=== PATIENT | male | born 1985 | race Asian ===

== ENCOUNTER 2024-04-09 18:27 | Emergency (ER) | payer BC ==
[2024-04-09 18:36] VITALS: RESP 18; TEMP 97.7; BMI 30.1
[2024-04-09] MEDS ORDERED: ACETAMINOPHEN INJECTION 100 ML IVPB ONE (19:41)
[2024-04-09] MEDS: ACETAMINOPHEN 1000 MG/100 ML BAG IVPB ONE (19:54)
[2024-04-09] MEDS: SODIUM CHLORIDE 0.9% 500 ML INFUS.BAG IV ONE (19:54)
[2024-04-09 20:29] LABS: BASO % 0.6 % (0-2.0); EOS % 3.8 % (0-4.5); HEMATOCRIT 41.1 % (35.4-49); HEMOGLOBIN 13.8 GM/dL (11.7-16.9); LYMPH % 38.1 % (8-40); MCH 26.5 pg (25.7-33.7); MCHC 33.5 g/dl (32.0-35.9); MEAN CELL VOLUME 79.2 fl (80-96); MEAN PLT VOLUME 7.7 fl (7.5-11.1); MONO % 8.2 % (3.8-10.2); NEUT % 49.3 % (42.8-82.8); PLATELET COUNT 352 10^3/uL (134-434); RBC 5.19 M/mm3 (4.00-5.60); RDW 12.5 % (11.9-15.9); WHITE BLOOD COUNT 6.8 K/mm3 (4.0-10.0)
[2024-04-09 20:43] LABS: POTASSIUM 4.3 mmol/L (3.5-5.1)
[2024-04-09 20:45] LABS: ALBUMIN 3.5 g/dl (3.4-5.0); BLOOD UREA NITROGEN 15.8 mg/dL (7-18); CALCIUM 10.1 mg/dL (8.5-10.1); MAGNESIUM 1.7 mg/dL (1.8-2.4)
[2024-04-09 20:47] VITALS: BP 129/78; PULSE 93
[2024-04-09 20:48] LABS: PHOSPHOROUS 3.3 mg/dL (2.5-4.9)
[2024-04-09 20:49] LABS: CREATININE 0.7 mg/dL (0.55-1.3)
[2024-04-09 20:50] LABS: BILIRUBIN,TOTAL 0.5 mg/dL (0.2-1); TOT PROT 6.7 g/dl (6.4-8.2)
== END 2024-04-09 22:48 | disposition left against medical advice (07) ==
LOC: JER 18:27
PROC: 3E033NZ Introduction of Analgesics, Hypnotics, Sedatives into Peripheral Vein, Percutaneous Approach (ICD-10-PCS; principal; 2024-04-09)
DX: R00.2 Palpitations (principal); R94.6 Abnormal results of thyroid function studies; R07.9 Chest pain, unspecified; R63.4 Abnormal weight loss; R00.0 Tachycardia, unspecified; Z20.822 Contact with and (suspected) exposure to COVID-19
CPT/HCPCS: 0241U-QW; 36415; 71045-TC-FY; 76536-TC; 80053; 82310; 83615; 83735; 84100; 84439; 84443; 84481; 84484; 85025; 87040; 93005; 93010; 99285-25; J0131

== ENCOUNTER 2024-04-11 02:03 | Observation (INO) | payer BC ==
[2024-04-11 02:08] VITALS: BMI 29.2
[2024-04-11] MEDS: MELATONIN 5 MG TABLETS PO ONE (04:47)
[2024-04-11 06:31] LABS: HEMATOCRIT 35.7 % (35.4-49); HEMOGLOBIN 12.2 GM/dL (11.7-16.9); MCH 26.9 pg (25.7-33.7); MCHC 34.1 g/dl (32.0-35.9); MEAN CELL VOLUME 78.9 fl (80-96); MEAN PLT VOLUME 7.4 fl (7.5-11.1); PLATELET COUNT 319 10^3/uL (134-434); RBC 4.53 M/mm3 (4.00-5.60); RDW 12.3 % (11.9-15.9); WHITE BLOOD COUNT 8.9 K/mm3 (4.0-10.0)
[2024-04-11] MEDS: propRANOLol HCL 10 MG TABLET PO SCH (06:34)
[2024-04-11 06:54] LABS: POTASSIUM 4.2 mmol/L (3.5-5.1)
[2024-04-11 06:57] LABS: CALCIUM 9.2 mg/dL (8.5-10.1)
[2024-04-11 06:59] LABS: BLOOD UREA NITROGEN 18.6 mg/dL (7-18); CHOLESTEROL 152 mg/dL (50-200)
[2024-04-11 07:01] LABS: CREATININE 0.6 mg/dL (0.55-1.3); LDL CHOLESTEROL (ONLY SJRH) 102 mg/dL (5-100)
[2024-04-11 07:03] LABS: BILIRUBIN,TOTAL 0.5 mg/dL (0.2-1); HDL CHOLESTEROL 33 mg/dL (40-60); TOT PROT 6.1 g/dl (6.4-8.2)
[2024-04-11 09:21] VITALS: PULSE 91; RESP 18
[2024-04-11] MEDS: ENOXAPARIN NA (PORCINE) 40 MG/0.4 ML DISP.SYRIN SQ SCH (10:00)
[2024-04-11] MEDS: METHIMAZOLE 10 MG TABLET PO SCH (10:53)
[2024-04-11 15:04] VITALS: BP 118/67; TEMP 97.7
== END 2024-04-11 15:35 | disposition home or self-care (01) ==
LOC: JER 02:03 → JERBED 03:06 → J4S 04:32
PROVIDERS: ADMIT Internal Medicine; ATTEND Internal Medicine
DX: E05.90 Thyrotoxicosis, unspecified without thyrotoxic crisis or storm (principal); R00.2 Palpitations; F41.9 Anxiety disorder, unspecified; E04.1 Nontoxic single thyroid nodule; Z29.89 Encounter for other specified prophylactic measures
CPT/HCPCS: 36415; 80053; 80061; 85027; 93005; 93010; 99285-25; G0378